=== PATIENT | male | born 1985 | race Caucasian/White ===

== ENCOUNTER 2023-06-22 16:50 | Emergency (ER) | payer OTHER, SELFPAY ==
[2023-06-22 16:54] VITALS: BP 153/93; PULSE 74; RESP 14; TEMP 37; O2SAT 99; BMI 35.4
--- NOTE | 2023-06-22 16:59 | DI.RAD.S_ITS ---
PROCEDURE: XR ANKLE LT MIN 3V INDICATIONS: moving fridge, felt snap, worried about achellies injury TECHNIQUE: 3 views of the ankle were acquired. COMPARISON: None. FINDINGS: Bones: No fractures or dislocations. Ankle mortise is normally aligned. No suspicious bony lesions. Soft tissues: No tibiotalar joint effusion. Achilles tendon appears normal. IMPRESSION: No acute osseous findings. Dictated by: Shiraz Maciel M.D. on 06/22/2023 at 16:24 Approved by: Shiraz Maciel M.D. on 06/22/2023 at 16:29
--- NOTE | 2023-06-22 19:12 | ED.LOWEXIN ---
HPI - Extremity Injury (Lower) General Chief Complaint: Extremity Injury, Lower Stated Complaint: left leg/calf injury Time Seen by Provider: 06/22/23 18:01 Source: patient Mode of arrival: Ambulatory History of Present Illness HPI Narrative: 37-year-old male who is here for evaluation of the left calf injury. He states he was moving a refrigerator when he felt and heard a pop in his left calf muscle. Since that time he is had difficulty standing and walking and moving his ankle. No prior injuries. No other injuries from the event. Has not tried anything for the symptoms prior to arrival. Related Data Allergies Allergy/AdvReac Type Severity Reaction Status Date / Time No Known Drug Allergies Allergy Verified 06/22/23 16:57 Review of Systems Constitutional Constitutional: Reports system reviewed and no additional complaints, except as documented Musculoskeletal Musculoskeletal: Reports system reviewed and no additional complaints, except as documented Integumentary/Breasts Skin/Breast: Reports system reviewed and no additional complaints, except as documented Patient History Social History Smoking Status: Never smoker Smoking Status: Never smoker alcohol intake frequency: 0-2 drinks per day Substance Use Type: does not use Exam Initial Vital Signs Initial Vital Signs: Vital Signs Temperature 98.6 F 06/22/23 16:54 Pulse Rate 74 06/22/23 16:54 Respiratory Rate 14 06/22/23 16:54 Blood Pressure 153/93 H 06/22/23 16:54 Pulse Oximetry 99 06/22/23 16:54 Oxygen Delivery Method Room Air 06/22/23 16:54 Skin General: no rashes or lesions noted Neuro Sensory Exam: no sensory deficits noted Extrem Other: Patient has tenderness of the medial calf muscle. The Achilles tendon appears to be intact. He can flex and extend the ankle but it causes him quite a bit of discomfort in his calf muscle and there is definitely limited range of motion. There is fullness of the medial head of the calf muscle as well. Procedures Orthopedic Splinting/Casting Injury #1: Side: left Lower Extremity Injury Location: lower leg Lower Extremity Immobilizer: boot orthosis Post splinting neuro exam: no change Post splinting vascular exam: no change Placed by: Nursing Course Orders Ordered: ED Orders 06/22/23 16:59 XR ankle LT min 3V Stat Discontinued Medications Hydrocodone Bitart/Acetaminophen (Hydrocodone/Acet 5/325 Prepack) 1 bottle MISC SEEINSTR ONE Stop: 06/22/23 19:13 Last Admin: 06/22/23 19:20 Dose: 1 bottle Documented By: GT Vital Signs Vital signs: Vital Signs - 8 hr 06/22/23 16:54 06/22/23 19:31 Temperature 98.6 F Pulse Rate 74 71 Respiratory Rate 14 16 Blood Pressure 153/93 H 131/84 Pulse Oximetry 99 99 Oxygen Delivery Method Room Air Room Air MDM - Extremity Injury (Lower) Imaging Data Extremity x-ray #1: Radiologist's Impression: PROCEDURE: XR ANKLE LT MIN 3V INDICATIONS: moving fridge, felt snap, worried about achellies injury TECHNIQUE: 3 views of the ankle were acquired. COMPARISON: None. FINDINGS: Bones: No fractures or dislocations. Ankle mortise is normally aligned. No suspicious bony lesions. Soft tissues: No tibiotalar joint effusion. Achilles tendon appears normal. IMPRESSION: No acute osseous findings. [facility] Narrative Medical decision making narrative: Patient is neurovascularly intact. Based on his history and physical I do suspect a partial tear of either the medial head of the calf muscle or of the Achilles tendon. It is certainly not fully torn as there is no deficit felt. He was placed in an orthopedic boot for comfort and also crutches. Pain medication as well. Will have him follow-up with Orthopedic surgery. He was given return precautions. He expressed understanding and agreement. Discharge Plan Departure Patient Disposition: Home Clinical Impression: Partial tear of left Achilles tendon Instructions: Achilles Tendon Rupture Activity Restrictions/Additional Instructions: The crutches and orthopedic boot or for your comfort. You can walk 1 your leg as tolerated. Recommend you contact the orthopedic doctors with the number provided below for a follow-up. Return to the emergency department for new or worsening symptoms. Referrals: Per Ellis MD [Primary Care Provider] - Stephanie Christina MD [Physician] - Stand Alone Forms: Patient Portal/API, Work Release Note
[2023-06-22] MEDS: HYDROCODONE/ACET 5/325 PREPACK 1 BOTTLE MISC (19:20)
[2023-06-22 19:31] VITALS: BP 131/84; PULSE 71; RESP 16; O2SAT 99
== END 2023-06-22 19:31 | disposition home or self-care (01) ==
PROVIDERS: Emergency Provider Emergency Medicine; PCP Internal Medicine
DX: S86.012A Strain of left Achilles tendon, initial encounter (principal); X58.XXXA Exposure to other specified factors, initial encounter
CPT/HCPCS: 73610; 99282; 99283